=== PATIENT | male | born 1975 | race Caucasian/White ===

== ENCOUNTER 2017-01-03 08:32 | Emergency (ER) | payer BC ==
--- NOTE | 2017-01-04 12:11 | ER ---
ADMIT: 01/03/2017 RM/LOC: ER [facility] MR#: [id number] [id number] JHONATHAN NARANJO [address] [place] [id number] Emergency Room Report SEX: M AGE: 41 : 1975 DATE: HISTORY OF PRESENT ILLNESS: A 41-year-old gentleman, comes to the Emergency Department with sudden onset of abdominal pain in the right lower quadrant. He was having a bowel movement, stood from the toilet and felt a sudden onset of pain. He has been having recent onset of diarrhea alternating with constipation over the past 24-36 hours. See T-sheet for remainder of history and physical. CT of the abdomen was within normal limits. A CBC reveals a white count of 20 with 1.9% monocytes. The patient is diagnosed with abdominal pain. He was instructed to follow up with his primary doctor on Friday. I did speak at length with this patient's family about his abdominal pain and why I did not give him pain medicine to cover. Told him, if this intensifies, he should return to the Emergency Department or see his doctor. DIAGNOSIS: Abdominal pain. Darius Larson MD/ liana JOB #: [id number] CC: Darius Larson MD, Attending Physician Stefani Flaherty MD, Family Physician
== END 2017-01-03 11:30 | disposition home or self-care (01) ==
LOC: ER 08:32
DX: R10.31 Right lower quadrant pain (principal); I10 Essential (primary) hypertension; F32.9 Major depressive disorder, single episode, unspecified; Z79.899 Other long term (current) drug therapy

== ENCOUNTER 2017-01-03 20:36 | Emergency (ER) | payer BC ==
--- NOTE | 2017-01-04 07:17 | ER ---
ADMIT: 01/03/2017 RM/LOC: ER [facility] MR#: [id number] [address] [address] JHONATHAN NARANJO [address] [place] [address] Emergency Room Report SEX: M AGE: 41 : 1975 DATE: 01/03/2017 The patient is a 41-year-old male, return visit to ED with right lower quadrant abdominal pain. He states he started with vague URI symptoms earlier in the week. Prescribed antibiotics by Dr. Flaherty. He was here earlier in the day with negative CT renal. He states his temp was as high as 103 today with acute onset headache, body aches, and abdominal pain with fatigue, states his cough and sore throat are much improved since being placed on the antibiotics earlier in the week. Exam remarkable for nontoxic, afebrile male. Slightly tender right lower quadrant. Bowel sounds active. CT renal negative. CT abdomen with contrast also negative. WBC 19.0 with left shift. CRP 11.4. Lactic 1.0. UA 1+ blood, 3 wbc's, 1 rbc's per high-power field. The patient was given fluid, Zofran, Dilaudid, and Toradol with marked improvement, was able to eat and drink in the emergency Department, ambulated well. Suspect acute onset influenza. Treat with Tamiflu 75 mg b.i.d. #10. Prophylaxis for 16-year-old son and . Follow up Dr. Flaherty next week. Rudi Al MD/ liana JOB #: [id number] CC: Rudi Al MD, Attending Physician Stefani Flaherty MD, Family Physician Stefani Flaherty MD
== END 2017-01-04 01:50 | disposition home or self-care (01) ==
LOC: ER 20:36
DX: J11.1 Influenza due to unidentified influenza virus with other respiratory manifestations (principal); I10 Essential (primary) hypertension; E78.5 Hyperlipidemia, unspecified